=== PATIENT | female | born 1935 | race Caucasian/White ===

== ENCOUNTER 2018-05-05 06:00 | Inpatient (IN) ==
[2018-05-05] MEDS ORDERED: Metoprolol Tartrate 25 MG Tablet PO ONE (06:46)
[2018-05-05] MEDS ORDERED: Chlorhexidine Gluconate 2% 1 Pack (2 Cloths) TOPICAL ONE (06:46)
[2018-05-05] MEDS ORDERED: Sodium Chlor 0.9% Inj 500 ML IV.SIG SCH (07:00)
--- NOTE | 2018-05-05 11:01 | NM ---
EXAM DATE: 05/05/2018 10:45 AM EST AGE/SEX: 83 years / Female INDICATIONS: Vulva cancer. CLINICAL DATA: This is the patient's initial encounter. Patient reports that signs and symptoms have been present for 4 - 6 months and indicates a pain score of 4/10. MEDICAL/SURGICAL HISTORY: None. Hysterectomy. COMPARISON: No prior exams available for comparison. TECHNIQUE: Multiple injections were made per protocol. Lymphangiogram phase was obtained in addition to delayed spot views. DOSE: 1 mCi Tc99m Sulfur Colloid intradermal IMAGING: SPECT/CT imaging with fusion was performed. RADIATION DOSE: 3.02 CTDIvol(mGy) FINDINGS: The 30 minute delayed images demonstrate tenths activity in the initial injection site in the vulvar region. There are multiple small areas of intense mary kate activity right parietal region and along the distal internal iliac chain. The largest of these nodes measures up to approximately 1.[address] images. Patient was marked over the center of the nodes in the AP projection. CONCLUSION: 1. Mary Kate uptake in the right inguinal region as described. The patient was marked for surgery. Electronically signed by: Todd Butt MD 05/05/2018 11:00 AM EST
[2018-05-05] MEDS ORDERED: Methylene Blue Inj 100 MG/10 ML Vial OTHER ONE (13:35)
[2018-05-05] MEDS ORDERED: Lidocaine 1%/Epinephrine 1:100,000 Inj 20 ML Vial INFILTRATN ONE ×2 (13:36→14:00)
[2018-05-05] MEDS ORDERED: LORazepam 0.5 MG Tablet PO PRN (15:03)
[2018-05-05] MEDS ORDERED: fentaNYL Citrate Inj 100 MCG/2 ML Ampul ONE (15:16)
[2018-05-05] MEDS ORDERED: KCL 20 mEq/D5W/NaCl 0.45% Inj 1,000 ML ONE (15:24)
[2018-05-05] MEDS: KCL 20 mEq/D5W/NaCl 0.45% Inj 1,000 ML IV.CONT SCH (15:32)
--- NOTE | 2018-05-05 16:08 | P.PNONC ---
Subjective Interval history: post op resting in PACU, still sleepy denies pain Objective Vital Signs/Intake & Output: Vital Signs 05/05/18 07:25 05/05/18 11:13 05/05/18 15:06 Temperature 97.6 F 98.4 F 97.5 F L Pulse Rate 74 76 77 Respiratory Rate 18 16 14 Blood Pressure 139/83 135/65 135/65 Pulse Oximetry 97 97 97 05/05/18 15:15 05/05/18 15:30 05/05/18 15:45 Temperature Pulse Rate 66 65 66 Respiratory Rate 14 13 13 Blood Pressure 141/72 H 135/70 133/69 Pulse Oximetry 97 99 99 Intake & Output 05/04/18 05/05/18 05/05/18 18:59 06:59 18:59 Intake Total 1400 / 1400 Output Total 200 / 200 Balance 1200 / 1200 Weight 72.4 kg Intake: Anesthesia Amount 1400 / 1400 Output: Estimated Blood Loss 200 / 200 Other: Weight On Admission 72.4 kg Laboratory Results: Laboratory Results - last 24 hr 05/05/18 07:45 Blood Type O Positive Blood Type Recheck Required Antibody Screen Negative Imaging Studies: Impressions Lymphoscintigraphy Nuclear Medicine 05/05/18 08:01 CONCLUSION: 1. Mary Kate uptake in the right inguinal region as described. The patient was marked for surgery. Medications: Active Medications Generic Name Dose Route Start Last Admin Trade Name Freq PRN Reason Stop Dose Admin Lactated Ringer's 1,000 mls @ 30 mls/hr 05/05/18 07:00 05/05/18 07:45 Lr 1000 Ml Inj IV.SIG 05/06/18 06:59 30 mls/hr .Q24H MATT Administration Sodium Chloride 500 mls @ 30 mls/hr 05/05/18 07:00 05/05/18 11:16 Ns Inj IV.SIG Not Given .Q10H MATT Objective Remarks: GENERAL: Well-nourished, well-developed patient. SKIN: Warm and dry. HEAD: Normocephalic.. CARDIOVASCULAR: Regular rate and rhythm without murmurs. RESPIRATORY: No accessory muscle use. GASTROINTESTINAL: Abdomen soft, non-tender, nondistended. EXTREMITIES: No cyanosis, or edema. groin dressing c/d/i MUSCULOSKELETAL: Adequate muscle tone. NEUROLOGICAL: No obvious focal deficit. sleepy PSYCHIATRIC: Appropriate mood and affect; insight and judgment normal. Assessment/Plan - Plan post op post op orders in chart d/c deshaun in am ADAT Case management consulted for to help with wound care, pt with vulvar resection and groin sentinel lymph node resection anticipate pt to be discharged in the next 24 to 48 hours
[2018-05-05] MEDS: Ketorolac Inj 30 MG/ML (IVP) Vial IV.PUSH SCH ×2 (17:03→23:15)
[2018-05-06] MEDS: KCL 20 mEq/D5W/NaCl 0.45% Inj 1,000 ML IV.CONT SCH ×2 (01:11→13:38)
[2018-05-06] MEDS: Ketorolac Inj 30 MG/ML (IVP) Vial IV.PUSH SCH ×2 (05:28→13:25)
[2018-05-06 07:11] LABS: Baso % (Auto) 0.3 % (0.0-2.0); Eos % (Auto) 0.5 % (0.0-4.0); Hematocrit 35.3 % (35.0-46.0); Hemoglobin 11.5 gm/dL (11.6-15.3); Lymph # (Auto) 1.2 th/mm3 (1.0-4.8); Lymph % (Auto) 16.7 % (9.0-44.0); Mean Corpuscular HGB Conc 32.6 % (32.0-36.0); Mean Corpuscular Hemoglobin 28.9 pg (27.0-34.0); Mean Corpuscular Volume 88.8 fL (80.0-100.0); Mean Platelet Volume 8.4 fL (7.0-11.0); Mono # (Auto) 0.5 th/mm3 (0.0-0.9); Mono % (Auto) 6.9 % (0.0-8.0); Neut # (Auto) 5.6 th/mm3 (1.8-7.7); Neut % (Auto) 75.6 % (16.0-70.0); Platelet Count 251 th/mm3 (150-450); Red Blood Count 3.97 mil/mm3 (4.00-5.30); Red Cell Distribution Width 14.2 % (11.6-17.2); White Blood Count 7.5 th/mm3 (4.0-11.0)
[2018-05-06 07:49] LABS: Calcium 8.7 mg/dL (8.5-10.1); Carbon Dioxide 26.3 meq/L (21.0-32.0); Potassium 4.3 meq/L (3.5-5.1)
--- NOTE | 2018-05-06 08:03 | P.PNONC ---
Subjective Interval history: post op day 1 patient doing very well pain 07/05 has been eating and drinking without n/v OOB to chair Santamaria has been discontinued needs to void prior to discharge discharge instructions reviewed with patient Objective Vital Signs/Intake & Output: Vital Signs 05/05/18 11:13 05/05/18 15:06 05/05/18 15:15 Temperature 98.4 F 97.5 F L Pulse Rate 76 77 66 Respiratory Rate 16 14 14 Blood Pressure 135/65 135/65 141/72 H Pulse Oximetry 97 97 97 05/05/18 15:30 05/05/18 15:45 05/05/18 16:00 Temperature Pulse Rate 65 66 53 L Respiratory Rate 13 13 18 Blood Pressure 135/70 133/69 138/73 Pulse Oximetry 99 99 99 05/05/18 16:15 05/05/18 19:45 05/05/18 23:12 Temperature 97.4 F L 97.8 F 97.3 F L Pulse Rate 57 L 71 65 Respiratory Rate 18 16 16 Blood Pressure 130/72 114/71 121/64 Pulse Oximetry 99 96 97 05/06/18 03:35 05/06/18 04:00 Temperature 97.9 F Pulse Rate 64 Respiratory Rate 18 16 Blood Pressure 127/91 H Pulse Oximetry 96 Intake & Output 05/05/18 05/06/18 05/06/18 18:59 06:59 18:59 Intake Total 1971 1418 / 1418 Output Total 400 / 400 500 / 500 Balance 1572 / 1572 918 / 918 Weight 72.44 kg 72.2 kg Intake: IV 938 / 938 D5W/1/2NS + KCL 20 mEq Inj , 938 / 938 000 ML @ 100 mls/hr IV.CONT . Q10H [facility] Rx#:[id number] Oral 510 / 510 480 / 480 Anesthesia Amount 1400 / 1400 Output: Estimated Blood Loss 200 / 200 Urine Amount (Catheter) 200 / 200 500 / 500 Indwelling Urethral Catheter 200 / 200 500 / 500 Other: Date of Last Bowel Movement 05/05/18 Weight On Admission 72.4 kg Result Diagrams: 05/06/18 06:28 05/06/18 06:28 Laboratory Results: Laboratory Results - last 24 hr 05/05/18 05/06/18 05/06/18 07:45 06:28 06:28 WBC 7.5 RBC 3.97 L Hgb 11.5 L Hct 35.3 MCV 88.8 MCH 28.9 MCHC 32.6 RDW 14.2 Plt Count 251 MPV 8.4 Neut % (Auto) 75.6 H Lymph % (Auto) 16.7 [place] % (Auto) 6.9 Eos % (Auto) 0.5 Baso % (Auto) 0.3 Neut # (Auto) 5.6 Lymph # (Auto) 1.2 [place] # (Auto) 0.5 Eos # (Auto) 0.0 Baso # (Auto) 0.0 WBC Differential . Differential Comment Auto diff final Sodium 140 Potassium 4.3 Chloride 108 H Carbon Dioxide 26.3 Anion Gap 6 BUN 13 Creatinine 0.94 Estimated GFR 57 L Random Glucose 104 Calcium 8.7 Blood Type O Positive Blood Type Recheck Required Antibody Screen Negative Imaging Studies: Impressions Lymphoscintigraphy Nuclear Medicine 05/05/18 08:01 CONCLUSION: 1. Mary Kate uptake in the right inguinal region as described. The patient was marked for surgery. Medications: Active Medications Generic Name Dose Route Start Last Admin Trade Name Freq PRN Reason Stop Dose Admin Sodium Chloride 500 mls @ 30 mls/hr 05/05/18 07:00 05/05/18 11:16 Ns Inj IV.SIG Not Given .Q10H MATT Potassium Chloride/Dextrose/Sod Cl 1,000 mls @ 100 mls/hr 05/05/18 15:15 05/12 01:11 D5w/1/2ns + Kcl 20 Meq Inj IV.CONT 100 mls/hr .Q10H MATT Administration Ketorolac Tromethamine 15 mg 05/05/18 18:00 05/06/18 05:28 Toradol Inj IV.PUSH 05/06/18 12:01 15 mg Q6HR MATT Administration Ondansetron HCl 4 mg 05/05/18 15:03 05/05/18 16:40 Zofran Inj IV.PUSH 4 mg Q6H PRN Administration NAUSEA OR VOMITING Oxycodone/Acetaminophen 1 tab 05/05/18 15:03 05/05/18 16:40 Percocet 5/325 Mg PO 1 tab Q4H PRN Administration PAIN SCALE 1 TO 5 Sodium Chloride 2 ml 05/05/18 21:00 05/05/18 23:16 Ns Flush IV.FLUSH Not Given BID MATT Objective Remarks: GENERAL: Well-nourished, well-developed patient. SKIN: Warm and dry. HEAD: Normocephalic. EYES: No scleral icterus. No injection or drainage. CARDIOVASCULAR: Regular rate and rhythm without murmurs. RESPIRATORY: Breath sounds equal bilaterally. No accessory muscle use. 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 EXTREMITIES: No cyanosis, or edema. MUSCULOSKELETAL: Adequate muscle tone. NEUROLOGICAL: No obvious focal deficit. Awake, alert, and oriented x3. PSYCHIATRIC: Appropriate mood and affect; insight and judgment normal. 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 Mallory
--- NOTE | 2018-05-06 09:59 | MP ---
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 PROCEDURE: Right radical vulvectomy, sentinel lymph node mapping and excisional biopsies of the right groin. SURGEON: Patience Mallory MD SPINDLE FRAME CARVER: [place] reference assistant. ANESTHESIA: General endotracheal anesthesia. ESTIMATED BLOOD LOSS: 200 mL. HISTORY: An 83-year-old female who had a large tumor replacing the right vulva. Biopsy showed squamous cell carcinoma. She was counseled regarding the extent of the disease and the options of surgery versus radiation. The extent of the surgery and the recommendations to evaluate regional lymph nodes were discussed and reviewed. She expressed good understanding and presents now for that endeavor. She was seen in the preop holding area where the findings and plan of care are again discussed as she had been seen earlier that morning where she was also counseled and technetium-99 had been injected circumferentially around the tumor to assist in sentinel lymph node mapping. She again expressed good understanding and was ready to proceed with surgery. FINDINGS: The right vulva was essentially replaced with an invasive squamous cell tumor. It extended ventrally to the level of the clitoris, but was to the right of the clitoris. It extended posteriorly to the perineum, replaced the labia minora. The labia majora had extended into the introitus at the distal most edge of the vagina. The remainder of the external anatomy appeared normal. On imaging, she had 2 borderline and strongly active lymph nodes in the superficial space of the right groin. She had a third active lymph node in the lateral right groin as well as a couple of active lymph nodes in the distal right pelvis. There was no technetium-99 signal that traversed and crossed over to the left groin or left pelvis. I had the opportunity to review the films with Dr. Todd Butt to clarify the location and extent of the sentinel lymph nodes and this information with the lymphoscintigraphy was also shared with Darshana Moody prior to surgery. DESCRIPTION OF PROCEDURE: She was taken to the operating room and placed in the dorsal lithotomy position after general endotracheal anesthesia was administered. A timeout was undertaken. She was identified by site recognition and hospital ID bracelet, and the proposed procedure was reviewed and confirmed. She was carefully positioned in padded stirrups, arms secured to the side. Exam under anesthesia was performed with findings as described above. She was prepped and draped in sterile fashion. Santamaria catheter was inserted. Dilute methylene blue was injected circumferentially in the subcutaneous tissue around the periphery of the tumor to help facilitate sentinel lymph node mapping. Change of sterile gloves was undertaken. She was placed in low lithotomy position, completed draping with exposure isolated to the right groin. Navigator probe was used to confirm location of the metabolic lymph nodes. An incision was made in the right groin and carried down to the level of Boo's fascia, which was opened and blunt dissection and cautery were used with guidance from visual and palpable feedback as well as navigator probe to find the first sentinel lymph node, which was in the superficial space overlying the femoral artery. The lymph node was removed with cautery and sharp dissection and was assessed with the reading set on a 10x detection. The signal of the removed lymph node ranged from 726-789 and was labeled as right groin sentinel lymph node #1. Additional evaluation was able to identify the second metabolically active lymph node that was just medial to the aforementioned lymph node just medial to the femoral vein. This was removed with cautery and sharp dissection and once removed, the signal intensity was assessed and ranged from 786-829. This was labeled as right groin SLN #2. Knowing that lymphoscintigraphy revealed a lateral lymph node, inspection and palpation was set forth to identify this node. Using the navigator probe, a signal was identified. A small, but nonetheless metabolically active lymph node was isolated in the lateral superficial space of the right groin, removed with bipolar cautery and sharp dissection. Once removed, the lymph node signal intensity ranged from 249-292. It was labeled as right groin SLN #3 Navigator probe was now used to carefully inspect the right groin basin. There was no persistent elevated signal other than the background intensity. No other visible or palpable abnormal lymph nodes. It was felt that all 3 of the previously identified sentinel lymph nodes had been removed successfully. We prepped, the right groin was irrigated. Small bleeders rendered hemostatic with bipolar cautery. Boo's fascia was reapproximated with a running 3-0 Vicryl suture. Then, the skin edges were closed with a running 3-0 Vicryl subcuticular. Steri-Strips and sterile dressing placed over this groin and covered with a sterile towel. Now, attention was directed toward the primary tumor. She was placed in high lithotomy position. Surgical marker was used to carefully outline and a large elliptical excision around the primary tumor with grossly negative margins, medial border was taken inside the distal vagina just beyond the introitus. The incision outline was drawn in close proximity to the urethra and clitoris, but without disruption to those structures. With the apex carried to the level of the mons pubis, laterally it was continued down along the lateral border of the labia majora and the inferior aspect was carried below the perineum to the right perianal region. Lidocaine with epinephrine was injected circumferentially. Sharp dissection was used to outline the border with the scalpel and then sharp dissection around the borders continued and then cautery to remove this in a radical fashion down very close to the musculofibrous base of this dissection space. The pudendal vessels were isolated, clamped with hemostats as the dissection was continued and this right radical specimen was removed, labeled right vulva radical resection with a suture at 12 o'clock. Active bleeders were clamped with hemostat, suture ligated and then in multiple layers the vaginal mucosa and submucosa was reapproximated and enforced to adjacent tissue with interrupted 3-0 Vicryl sutures. The lateral margin was similarly reduced by approximating the lateral margin to the adjacent tissue with interrupted 3-0 Vicryl sutures and then deep layers of the central defect were reapproximated with interrupted 3-0 Vicryl sutures and this process was continued until the skin edges were able to be brought into close proximity without tension. There was a little bit of excess folding of tissue at the mons pubis apex and at the 12 o'clock position as well as small excess folding of tissue at the 6 o'clock position. These were sharply excised and collectively sent as apex margins at 6 and 12 o'clock. This allowed now the defect to lay flat to help facilitate closure, without redundant tissue at the apices. The skin edges and subcutaneous tissue were now reapproximated and closed with interrupted 3-0 Vicryl sutures, which completely closed the area without tension with complete hemostasis. The entire lesion had been removed with circumferentially grossly negative margins and considering the radicality of the resection with satisfactory cosmetic and functional results as there was no disruption to the urethra or clitoris. The vagina was irrigated. Inspection confirmed there were no remaining foreign objects in the vagina. Preliminary and final counts were correct. She was returned to a dorsal lithotomy position pending reversal of anesthesia, when I left the operating room to precede her to the postanesthesia care unit. MD ELOISE Davalos/sv/juan alberto , 07:44 AM , 08:01 AM MARLEE
--- NOTE | 2018-05-06 11:41 | P.DCO ---
- Diagnosis (1) Vulvar cancer Status: Acute (2) Post-operative state Status: Acute - Home Health Nursing Order: Medical education, Wound care and dressing changes Instructions: large vulvar wound and incision to right groin will need wound care. - Case Management Consult Case Management Consult-Home Health: Yes - Certification I have seen patient Darshana Moody on 05/06/18. My clinical findings support the need for the requested home health care services because: post op patient Limited ability to care for self I certify that my clinical findings support that this patient is homebound because: post op patient Post-op weakness Attestation/Additional Detail: s/p resection of large vulvar lesion and groin lymph node resection. In need of wound care and assistance with education on pain management.
[2018-05-06 13:17] VITALS: BP 119/60; PULSE 68; RESP 16; TEMP 98.5; O2SAT 98
== END 2018-05-06 14:25 | disposition home health service (06) ==
LOC: HSDI 06:00 → HCIN 13:58
PROVIDERS: ADMIT Obstetrics & Gynecology Gynecologic Oncology; ATTEND Obstetrics & Gynecology Gynecologic Oncology